=== PATIENT | female | born 1945 | race Hispanic/Latino ===

== ENCOUNTER 2017-07-24 13:47 | Emergency (ER) | payer MEDICARE ==
[2017-07-24 14:09] LABS: BASOPHILS % (AUTO) 1.1 % (0.0-5.0); EOSINOPHILS % (AUTO) 5.1 % (0.0-8.0); HEMATOCRIT 34.6 % (36-48); LYMPHOCYTES % (AUTO) 33.8 % (21.0-51.0); MEAN CORPUSCULAR HEMOGLOBIN 31.1 pg (27.0-33.0); MEAN CORPUSCULAR HGB CONC 35.3 g/dL (32.0-36.0); MEAN CORPUSCULAR VOLUME 88.2 fL (79-99); MONOCYTES % (AUTO) 5.9 % (3.0-13.0); NEUTROPHILS % (AUTO) 54.1 % (40.0-77.0); PLATELET COUNT (AUTO) 205 K/uL (130-400); RED BLOOD CELL COUNT(AUTO) 3.93 MIL/uL (4.00-5.50); RED CELL DISTRIBUTION WIDTH 13.2 % (11.0-15.5)
[2017-07-24 14:20] LABS: CREATININE 1.5 mg/dL (0.5-1.5); POTASSIUM 3.8 mmol/L (3.5-5.1)
[2017-07-24 14:23] LABS: INR 0.94 (0.85-1.15); PARTIAL THROMBOPLASTIN TIME 24.4 SEC (26.3-35.5); PROTHROMBIN TIME 9.9 SEC (9.6-11.6)
[2017-07-24 14:25] LABS: ALBUMIN 3.6 g/dL (3.5-5.0); BILIRUBIN,TOTAL 0.7 mg/dL (0.2-1.0); TOTAL PROTEIN, SERUM 7.8 g/dL (6.0-8.3)
[2017-07-24 14:49] LABS: APPEARANCE,URINE Clear (CLEAR); BILIRUBIN,URINE Negative (NEGATIVE); COLOR,URINE Yellow (YELLOW); GLUCOSE, URINE (UA) Negative (NEGATIVE); KETONES,URINE Negative (NEGATIVE); LEUKOCYTE ESTERASE ,URINE Negative (NEGATIVE); NITRATE,URINE Negative (NEGATIVE); OCCULT BLOOD,URINE Negative (NEGATIVE); PROTEIN,URINE Negative (NEGATIVE); UROBILINOGEN,URINE 0.2 mg/dL (0.2-1.0)
[2017-07-24 15:29] LABS: BACTERIA,URINE Few /HPF (None Seen); RBC,URINE None Seen /HPF (0-1); SQUAMOUS EPITHELIAL CELL,UR 0-2 /HPF (0-2); WBC,URINE 0-1 /HPF (0-1)
[2017-07-24] MEDS ORDERED: METOPROLOL TARTRATE 1 MG/ML 5ML VIAL IV ONE (16:25)
== END 2017-07-24 18:24 | disposition home or self-care (01) ==
LOC: EDH 13:47
DX: R55 Syncope and collapse (principal); E11.65 Type 2 diabetes mellitus with hyperglycemia; I10 Essential (primary) hypertension; E78.5 Hyperlipidemia, unspecified; Z90.49 Acquired absence of other specified parts of digestive tract
CPT/HCPCS: 36415; 70450; 80053; 81003; 84484; 85025; 85610; 85730; 93005; 96374; 99285; J3490

== ENCOUNTER → 2020-02-10 | Outpatient (CLI) | payer MEDICARE | END | disposition home or self-care (01) | LOC: SHCH 10:00 | PROVIDERS: ATTEND Internal Medicine Cardiovascular Disease | DX: I10 Essential (primary) hypertension (principal) | CPT/HCPCS: 93306; 93356 ==

== ENCOUNTER → 2020-02-10 | Outpatient (CLI) | payer OTHER | END | disposition home or self-care (01) | LOC: RAH 14:30 | PROVIDERS: ATTEND Internal Medicine Cardiovascular Disease | DX: Z13.6 Encounter for screening for cardiovascular disorders (principal) | CPT/HCPCS: 75571 ==

== ENCOUNTER 2022-01-23 08:41 | Day surgery (SDC) | payer OTHER, MEDICARE ==
[2022-01-18 16:11] LABS: BASOPHILS % (AUTO) 0.5 % (0.0-5.0); EOSINOPHILS % (AUTO) 2.7 % (0.0-8.0); HEMATOCRIT 36.3 % (36-48); LYMPHOCYTES % (AUTO) 35.1 % (21.0-51.0); MEAN CORPUSCULAR HEMOGLOBIN 29.6 pg (27.0-33.0); MEAN CORPUSCULAR HGB CONC 32.5 g/dL (32.0-36.0); MONOCYTES % (AUTO) 6.2 % (3.0-13.0); NEUTROPHILS % (AUTO) 55.3 % (40.0-77.0); PLATELET COUNT (AUTO) 200 K/uL (130-400); RED BLOOD CELL COUNT(AUTO) 3.99 MIL/uL (4.00-5.50); WHITE BLOOD COUNT (AUTO) 8.2 K/uL (4.8-10.8)
[2022-01-18 16:15] LABS: APPEARANCE,URINE CLEAR (CLEAR); BILIRUBIN,URINE NEGATIVE (NEGATIVE); COLOR,URINE LIGHT-YELLOW (YELLOW); GLUCOSE, URINE (UA) NEGATIVE (NEGATIVE); KETONES,URINE NEGATIVE (NEGATIVE); LEUKOCYTE ESTERASE ,URINE NEGATIVE Leu/uL (NEGATIVE); NITRATE,URINE NEGATIVE (NEGATIVE); OCCULT BLOOD,URINE NEGATIVE (NEGATIVE); PH,URINE 5.5 (5.0-8.0); PROTEIN,URINE NEGATIVE (NEGATIVE); UROBILINOGEN,URINE 0.2 mg/dL (0.2-1.0)
[2022-01-18 16:21] LABS: CREATININE 1.3 mg/dL (0.5-1.5); POTASSIUM 3.9 mmol/L (3.5-5.1)
[2022-01-18 16:22] LABS: BACTERIA,URINE RARE /HPF (None Seen); MUCUS,URINE RARE LPF (None Seen); SQUAMOUS EPITHELIAL CELL,UR FEW /HPF (0-2)
[2022-01-18 16:23] LABS: INR 0.97 (0.85-1.15); PROTHROMBIN TIME 10.6 SEC (9.6-11.6)
[2022-01-18 16:24] LABS: PARTIAL THROMBOPLASTIN TIME 25.9 SEC (26.3-35.5)
[2022-01-18 16:28] LABS: B-TYPE NATRIURETIC PEPTIDE 104 pg/mL (0-100)
[2022-01-19 15:36] VITALS: BP 188/70
[~2022-01-23] VITALS: Ht 162.6 cm; Wt 87.5 kg
[2022-01-23] VITALS (9 sets, daily range): BP systolic 106–164; BP diastolic 48–93
[~2022-01-23 08:41] MED LIST: AEC81 PO; BUME1TAB7 PO; DULA1.5P SQ; LISI1TAB53 PO; METO100T14 PO
[2022-01-23] MEDS ORDERED: 0.9%NACL 1000ML 1,000 ML IV ONE (09:32)
[2022-01-23] MEDS ORDERED: HEPARIN 10,000 UNIT/10ML (1,000 UNIT/ML) VIAL ONE ×2 (11:25→12:19)
[2022-01-23] MEDS ORDERED: IOHEXOL 350 MG/ML 100ML INFUS..BTL IV ONE (11:25)
[2022-01-23] MEDS ORDERED: NITROGLYCERIN 50MG VIAL ONE (11:25)
[2022-01-23] MEDS ORDERED: IOHEXOL-350 50ML VIAL IV ONE (11:25)
[2022-01-23] MEDS ORDERED: LIDOCAINE HCL 1% 20 ML VIAL ONE (11:25)
[2022-01-23] MEDS ORDERED: MIDAZOLAM HCL 1 MG/ML 2ML VIAL ONE ×2 (11:37→11:52)
[2022-01-23] MEDS ORDERED: MEPERIDINE-PF 25 MG/ML SYG ONE (11:37)
[2022-01-23] MEDS ORDERED: MEPERIDINE-PF 50 MG/ML SYG ONE (11:52)
[2022-01-23] MEDS ORDERED: LABETALOL 20MG SYG IV ONE (12:06)
[2022-01-23] MEDS ORDERED: 0.9%NACL 1000ML 1,000 ML IV SCH (12:30)
[2022-01-23] MEDS ORDERED: PRAV20TA4 PO ×2 (16:08→16:09)
== END 2022-01-23 16:30 | disposition home or self-care (01) ==
LOC: DAH 08:41
PROVIDERS: ATTEND Internal Medicine Cardiovascular Disease
DX: I25.119 Atherosclerotic heart disease of native coronary artery with unspecified angina pectoris (principal); I25.82 Chronic total occlusion of coronary artery; I25.2 Old myocardial infarction; I10 Essential (primary) hypertension; E78.5 Hyperlipidemia, unspecified; E11.9 Type 2 diabetes mellitus without complications; E66.9 Obesity, unspecified; M19.90 Unspecified osteoarthritis, unspecified site; Z90.49 Acquired absence of other specified parts of digestive tract; Z82.49 Family history of ischemic heart disease and other diseases of the circulatory system; Z80.7 Family history of other malignant neoplasms of lymphoid, hematopoietic and related tissues; Z79.82 Long term (current) use of aspirin; Z79.84 Long term (current) use of oral hypoglycemic drugs; Z79.899 Other long term (current) drug therapy; Z79.01 Long term (current) use of anticoagulants; Z98.890 Other specified postprocedural states; Z68.33 Body mass index [BMI] 33.0-33.9, adult
CPT/HCPCS: 80048; 83880; 85025; 85610; 85730; 81001; 36415; 71045; 93005; 93458; 82948 ×2; C1894; C1760; J7030; J1644 ×3; J2250 ×2; J2175 ×2; J3490; Q9967 ×2; A4215; A4222; A4221; A4663; A4216; A4606; A4223 ×3; 96360; 96361; 99156; 99157

== ENCOUNTER 2022-02-13 07:30 | Inpatient (IN) | payer OTHER, MEDICARE ==
[2022-02-10 10:43] LABS: BASOPHILS % (AUTO) 0.3 % (0.0-5.0); EOSINOPHILS % (AUTO) 0.7 % (0.0-8.0); HEMATOCRIT 35.9 % (36-48); LYMPHOCYTES % (AUTO) 26.7 % (21.0-51.0); MEAN CORPUSCULAR HEMOGLOBIN 29.7 pg (27.0-33.0); MEAN CORPUSCULAR HGB CONC 33.4 g/dL (32.0-36.0); MEAN CORPUSCULAR VOLUME 88.9 fL (79-99); MONOCYTES % (AUTO) 5.4 % (3.0-13.0); NEUTROPHILS % (AUTO) 66.6 % (40.0-77.0); PLATELET COUNT (AUTO) 226 K/uL (130-400); RED BLOOD CELL COUNT(AUTO) 4.04 MIL/uL (4.00-5.50); RED CELL DISTRIBUTION WIDTH 12.4 % (11.0-15.5); WHITE BLOOD COUNT (AUTO) 7.4 K/uL (4.8-10.8)
[2022-02-10 10:49] LABS: HEMOGLOBIN A1C 6.8 % (4.0-6.0)
[2022-02-10 10:53] LABS: INR 0.97 (0.85-1.15); PROTHROMBIN TIME 10.6 SEC (9.6-11.6)
[2022-02-10 10:54] LABS: PARTIAL THROMBOPLASTIN TIME 24.6 SEC (26.3-35.5)
[2022-02-10 10:58] LABS: ALBUMIN 3.8 g/dL (3.5-5.0); CREATININE 1.1 mg/dL (0.5-1.5); POTASSIUM 3.5 mmol/L (3.5-5.1); TOTAL PROTEIN, SERUM 7.7 g/dL (6.0-8.3)
[2022-02-10 11:05] LABS: B-TYPE NATRIURETIC PEPTIDE 153 pg/mL (0-100)
[2022-02-10 11:21] VITALS: BP 203/100
[2022-02-10 11:40] LABS: ABG BASE EXCESS -0.7 mmol/L (-2.0-3.0); ABG HCO3 23.9 mmol/L (21.0-28.0); ABG OXYGEN SATURATION 97.7 % (95.0-99.0); ABG PCO2 39 mmHg (32-45)
[~2022-02-13] VITALS: Ht 162.6 cm; Wt 84.2 kg
[2022-02-13] VITALS (41 sets, daily range): BP systolic 82–176; BP diastolic 40–88
[~2022-02-13 07:30] MED LIST changes: +ACET-2743 PO; +ASPE90C TP; +PRAV20TA4 PO
[2022-02-13] MEDS ORDERED: 0.9%NACL 1000ML 1,000 ML IV ONE (10:02)
[2022-02-13] MEDS: CEFAZOLIN SODIUM 2 GM VIAL ONE ×2 (10:30→13:00)
[2022-02-13] MEDS ORDERED: EPINEPHRINE PF 1MG (1:1,000) 10 MG in 0.9% NACL 250ML 240 ML IV PRN ×2 (11:00→13:30)
[2022-02-13] MEDS ORDERED: NOREPINEPHRINE BITARTRATE 8 MG in 0.9% NACL 250ML 250 ML IV PRN (11:00)
[2022-02-13] MEDS ORDERED: AMINOCAPROIC ACID 5,000MG VIAL 15,000 MG in 0.9% NACL 500ML IV.SOLN 420 ML IV PRN (11:00)
[2022-02-13] MEDS ORDERED: PAPAVERINE HCL 30 MG/ML 2ML VIAL ONE (11:10)
[2022-02-13] MEDS ORDERED: CEFAZOLIN SODIUM 1 GM VIAL ONE (11:10)
[2022-02-13] MEDS: ASPIRIN 81 MG EC TAB PO SCH (11:11)
[2022-02-13] MEDS ORDERED: KETAMINE HCL 50MG/ML 10ML VIAL IJ ONE (11:36)
[2022-02-13] MEDS ORDERED: ESMOLOL HCL 10 MG/ML 10 ML VIAL ONE (12:26)
[2022-02-13] MEDS ORDERED: EPINEPHRINE PF 1MG (1:1,000) 1 MG/ML AMP ONE (12:26)
[2022-02-13] MEDS ORDERED: ROCURONIUM 10MG/1ML SYR 10 MG/ML ML ONE (12:26)
[2022-02-13] MEDS ORDERED: MIDAZOLAM HCL 1 MG/ML 2ML VIAL ONE (12:26)
[2022-02-13] MEDS ORDERED: PROTAMINE SULFATE 10 MG/ML 25ML VIAL IV ONE (12:26)
[2022-02-13] MEDS ORDERED: NOREPINEPHRINE BITARTRATE 1 MG/1 ML ML IV ONE (12:26)
[2022-02-13] MEDS ORDERED: AMINOCAPROIC ACID 5,000MG VIAL ONE (12:26)
[2022-02-13] MEDS ORDERED: LIDOCAINE PF 100MG/5ML (2%) SYRINGE 5ML ONE (12:26)
[2022-02-13] MEDS ORDERED: FENTANYL CITRATE PF 50 MCG/1 ML 20ML VIAL IJ ONE (12:26)
[2022-02-13] MEDS ORDERED: HEPARIN 10,000 UNIT/10ML (1,000 UNIT/ML) VIAL ONE (12:26)
[2022-02-13] MEDS ORDERED: PROPOFOL 10 MG/ML 20ML VIAL IV ONE (12:26)
[2022-02-13 13:08] LABS: ABG BASE EXCESS -3.2 mmol/L (-2.0-3.0); ABG HCO3 21.1 mmol/L (21.0-28.0); ABG OXYGEN SATURATION 99.7 % (95.0-99.0); ABG PCO2 35 mmHg (32-45)
[2022-02-13] MEDS ORDERED: SODIUM BICARB 8.4% 50ML SYRINGE ONE (13:11)
[2022-02-13] MEDS ORDERED: POTASSIUM PHOS 15 mMOL+NS250ML 250 ML IV PRN (13:30)
[2022-02-13] MEDS ORDERED: ACETAMINOPHEN 650 MG SUPPOSITORY RC PRN (13:30)
[2022-02-13] MEDS ORDERED: NOREPINEPHRIN 4MG/NS 250ML 250 ML IV PRN (13:30)
[2022-02-13] MEDS ORDERED: MORPHINE 2 MG SYG IV PRN (13:30)
[2022-02-13] MEDS ORDERED: MORPHINE 4 MG SYG IV PRN (13:30)
[2022-02-13] MEDS ORDERED: 0.9%NACL 1000ML 1,000 ML IV SCH (13:30)
[2022-02-13] MEDS ORDERED: INSULIN REGULAR, HUMAN 3ML 100 UNIT in 0.9%NACL 100ML 99 ML IV SCH ×2 (13:30)
[2022-02-13] MEDS ORDERED: TRAMADOL HCL 50 MG TABLET PO PRN ×2 (13:30)
[2022-02-13] MEDS ORDERED: DEXTROSE 50%-WATER 50 ML DISP.SYRIN IV PRN (13:30)
[2022-02-13] MEDS ORDERED: 0.9%NACL 10ML VIAL IVP PRN (13:30)
[2022-02-13] MEDS ORDERED: 0.9% NACL 500ML IV.SOLN 500 ML IV SCH (13:30)
[2022-02-13] MEDS ORDERED: ONDANSETRON 4MG INJ IV PRN (13:30)
[2022-02-13] MEDS ORDERED: HYDROCODONE/ACETAMINOPHEN 5/325 MG TAB PO PRN (13:30)
[2022-02-13] MEDS ORDERED: CALCIUM GLUC 1GM 1 GM in 0.9%NACL 50ML 50 ML IV PRN (13:30)
[2022-02-13] MEDS ORDERED: ALBUMIN (HUMAN) 5% 250 ML IV PRN (13:30)
[2022-02-13] MEDS ORDERED: NITROGLYCERIN 50MG/D5W 250ML 250 BOT IV SCH (13:30)
[2022-02-13] MEDS ORDERED: ACETAMINOPHEN 325 MG TAB PO PRN (13:30)
[2022-02-13] MEDS ORDERED: AMINOCAPROIC ACID 5,000MG VIAL 15,000 MG in 0.9% NACL 250ML 250 ML IV SCH (13:30)
[2022-02-13] MEDS ORDERED: GLUCAGON 1MG KIT 1 MG ML IM PRN (13:30)
[2022-02-13] MEDS ORDERED: PROPOFOL 1000 MG/100 ML 100 ML IV PRN (13:30)
[2022-02-13 13:37] LABS: ABG BASE EXCESS -1.5 mmol/L (-2.0-3.0); ABG HCO3 24.8 mmol/L (21.0-28.0); ABG OXYGEN SATURATION 99.7 % (95.0-99.0); ABG PCO2 48 mmHg (32-45)
[2022-02-13 14:42] LABS: ABG BASE EXCESS -5.1 mmol/L (-2.0-3.0); ABG HCO3 18.5 mmol/L (21.0-28.0); ABG OXYGEN SATURATION 99.2 % (95.0-99.0); ABG PCO2 30 mmHg (32-45)
[2022-02-13 15:22] LABS: ABG BASE EXCESS -3.8 mmol/L (-2.0-3.0); ABG HCO3 21.2 mmol/L (21.0-28.0); ABG OXYGEN SATURATION 98.8 % (95.0-99.0); ABG PCO2 38 mmHg (32-45)
[2022-02-13 15:28] LABS: HEMATOCRIT 23.2 % (36-48); MEAN CORPUSCULAR HEMOGLOBIN 30.3 pg (27.0-33.0); MEAN CORPUSCULAR HGB CONC 32.8 g/dL (32.0-36.0); MEAN CORPUSCULAR VOLUME 92.4 fL (79-99); RED BLOOD CELL COUNT(AUTO) 2.51 MIL/uL (4.00-5.50); RED CELL DISTRIBUTION WIDTH 12.5 % (11.0-15.5); WHITE BLOOD COUNT (AUTO) 15.5 K/uL (4.8-10.8)
[2022-02-13 15:38] LABS: INR 1.21 (0.85-1.15)
[2022-02-13 15:39] LABS: PARTIAL THROMBOPLASTIN TIME 22.2 SEC (26.3-35.5)
[2022-02-13 15:40] LABS: CREATININE 0.9 mg/dL (0.5-1.5); MAGNESIUM 1.1 mg/dL (1.80-2.40); PHOSPHORUS 3.3 mg/dL (2.5-4.9); POTASSIUM 3.4 mmol/L (3.5-5.1)
[2022-02-13] MEDS ORDERED: NICARDIPINE 100 MG in 0.9%NACL 100ML IV SCH (16:00)
[2022-02-13] MEDS ORDERED: ASPIRIN 81MG CHEW TAB NG ONE (16:00)
[2022-02-13] MEDS: SODIUM BICARB 50MEQ 50ML VIAL IV PRN ×3 (16:07→17:07)
[2022-02-13] MEDS: POTASSIUM CHLORIDE 20MEQ/100ML 100 ML IV PRN ×4 (16:08→20:43)
[2022-02-13] MEDS: MAGNESIUM 2GM PREMIX 50ML 50 ML IV PRN ×2 (16:28→16:51)
[2022-02-13 16:56] LABS: ABG BASE EXCESS -1.6 mmol/L (-2.0-3.0); ABG HCO3 21.9 mmol/L (21.0-28.0); ABG OXYGEN SATURATION 98.5 % (95.0-99.0); ABG PCO2 33 mmHg (32-45)
[2022-02-13] MEDS: CEFAZOLIN SODIUM 1 GM VIAL IV SCH (18:03)
[2022-02-13 18:16] LABS: ABG BASE EXCESS -0.3 mmol/L (-2.0-3.0); ABG HCO3 25.1 mmol/L (21.0-28.0); ABG OXYGEN SATURATION 98.2 % (95.0-99.0); ABG PCO2 45 mmHg (32-45)
[2022-02-13 19:32] LABS: ABG BASE EXCESS -0.3 mmol/L (-2.0-3.0); ABG HCO3 26.1 mmol/L (21.0-28.0); ABG OXYGEN SATURATION 97.9 % (95.0-99.0); ABG PCO2 51 mmHg (32-45)
[2022-02-13] MEDS: FAMOTIDINE 20MG VIAL IV SCH (20:26)
[2022-02-13 20:28] LABS: ABG BASE EXCESS 0.1 mmol/L (-2.0-3.0); ABG HCO3 26.2 mmol/L (21.0-28.0); ABG OXYGEN SATURATION 97.3 % (95.0-99.0); ABG PCO2 49 mmHg (32-45)
[2022-02-13] MEDS: SIMVASTATIN 20 MG TABLET PO SCH (20:28)
[2022-02-13] MEDS: ACETAMINOPHEN 325 MG TAB PO PRN (21:48)
[2022-02-14] VITALS (69 sets, daily range): BP systolic 46–169; BP diastolic 30–87
[2022-02-14] MEDS: CEFAZOLIN SODIUM 1 GM VIAL IV SCH ×2 (01:33→10:06)
[2022-02-14 03:26] LABS: ABG OXYGEN SATURATION 98.5 % (95.0-99.0); ABG PCO2 44 mmHg (32-45)
[2022-02-14 04:40] LABS: HEMATOCRIT 27.4 % (36-48); MEAN CORPUSCULAR HEMOGLOBIN 29.8 pg (27.0-33.0); MEAN CORPUSCULAR HGB CONC 33.6 g/dL (32.0-36.0); MEAN CORPUSCULAR VOLUME 88.7 fL (79-99); RED BLOOD CELL COUNT(AUTO) 3.09 MIL/uL (4.00-5.50); RED CELL DISTRIBUTION WIDTH 12.9 % (11.0-15.5); WHITE BLOOD COUNT (AUTO) 12.4 K/uL (4.8-10.8)
[2022-02-14 04:56] LABS: INR 0.93 (0.85-1.15); PROTHROMBIN TIME 10.2 SEC (9.6-11.6)
[2022-02-14 04:57] LABS: PARTIAL THROMBOPLASTIN TIME 21.3 SEC (26.3-35.5)
[2022-02-14 05:06] LABS: CREATININE 1.1 mg/dL (0.5-1.5); MAGNESIUM 1.9 mg/dL (1.80-2.40); POTASSIUM 4.1 mmol/L (3.5-5.1)
[2022-02-14] MEDS: ACETAMINOPHEN 325 MG TAB PO PRN ×3 (06:20→19:42)
[2022-02-14] MEDS: MAGNESIUM 2GM PREMIX 50ML 50 ML IV PRN (06:21)
[2022-02-14] MEDS: ASPIRIN 81 MG EC TAB PO SCH (08:36)
[2022-02-14] MEDS: FUROSEMIDE 20MG VIAL IV SCH ×2 (08:37→20:35)
[2022-02-14 13:45] LABS: MAGNESIUM 2.2 mg/dL (1.80-2.40); POTASSIUM 3.7 mmol/L (3.5-5.1)
[2022-02-14] MEDS: POTASSIUM CHLORIDE 20MEQ/100ML 100 ML IV PRN (14:10)
[2022-02-14] MEDS ORDERED: HEPARIN 10,000 UNIT/10ML (1,000 UNIT/ML) VIAL ONE (15:00)
[2022-02-14] MEDS: SIMVASTATIN 20 MG TABLET PO SCH (20:35)
[2022-02-14] MEDS: METOPROLOL TARTRATE 25 MG TAB PO SCH (20:35)
[2022-02-14] MEDS: FAMOTIDINE 20MG VIAL IV SCH (20:35)
[2022-02-15] VITALS (65 sets, daily range): BP systolic 0–145; BP diastolic 0–72
[2022-02-15] MEDS: ACETAMINOPHEN 325 MG TAB PO PRN ×2 (01:09→13:28)
[2022-02-15 04:54] LABS: HEMATOCRIT 23.1 % (36-48); MEAN CORPUSCULAR HEMOGLOBIN 30.1 pg (27.0-33.0); MEAN CORPUSCULAR HGB CONC 32.5 g/dL (32.0-36.0); MEAN CORPUSCULAR VOLUME 92.8 fL (79-99); RED BLOOD CELL COUNT(AUTO) 2.49 MIL/uL (4.00-5.50); RED CELL DISTRIBUTION WIDTH 13.1 % (11.0-15.5); WHITE BLOOD COUNT (AUTO) 13.2 K/uL (4.8-10.8)
[2022-02-15 05:11] LABS: CREATININE 1.3 mg/dL (0.5-1.5); POTASSIUM 3.8 mmol/L (3.5-5.1)
[2022-02-15] MEDS: ASPIRIN 81 MG EC TAB PO SCH (08:14)
[2022-02-15] MEDS: FUROSEMIDE 20 MG TABLET PO SCH ×2 (08:14→16:05)
[2022-02-15] MEDS: METOPROLOL TARTRATE 25 MG TAB PO SCH ×2 (08:14→19:56)
[2022-02-15] MEDS ORDERED: METOPROLOL TARTRATE 25 MG TAB PO SCH (09:00)
[2022-02-15] MEDS: INSULIN HUMULIN R 100 UNIT/ML 3ML SQ SCH ×3 (11:30→20:37)
[2022-02-15] MEDS: FAMOTIDINE 20MG VIAL IV SCH (19:56)
[2022-02-15] MEDS: SIMVASTATIN 20 MG TABLET PO SCH (19:56)
[2022-02-16] VITALS (8 sets, daily range): BP systolic 107–140; BP diastolic 42–70
[2022-02-16 03:23] LABS: HEMATOCRIT 24.5 % (36-48); MEAN CORPUSCULAR HEMOGLOBIN 29.8 pg (27.0-33.0); MEAN CORPUSCULAR HGB CONC 31.8 g/dL (32.0-36.0); MEAN CORPUSCULAR VOLUME 93.5 fL (79-99); RED BLOOD CELL COUNT(AUTO) 2.62 MIL/uL (4.00-5.50); WHITE BLOOD COUNT (AUTO) 11.6 K/uL (4.8-10.8)
[2022-02-16 03:37] LABS: CREATININE 1.5 mg/dL (0.5-1.5); POTASSIUM 3.6 mmol/L (3.5-5.1)
[2022-02-16] MEDS ORDERED: AMIODARONE 150MG VIAL ONE ×2 (03:47→04:03)
[2022-02-16] MEDS ORDERED: AMIODARONE 900MG VIAL 150 MG in DEXTROSE 5%-WATER 100 ML IV SCH (04:00)
[2022-02-16] MEDS ORDERED: AMIODARONE 900MG VIAL 360 MG in DEXTROSE 5%-WATER 200 ML IV SCH (04:10)
[2022-02-16] MEDS: ACETAMINOPHEN 325 MG TAB PO PRN (05:03)
[2022-02-16] MEDS: INSULIN HUMULIN R 100 UNIT/ML 3ML SQ SCH ×4 (06:22→20:13)
[2022-02-16] MEDS: METOPROLOL TARTRATE 25 MG TAB PO SCH ×2 (07:47→20:13)
[2022-02-16] MEDS: FUROSEMIDE 20 MG TABLET PO SCH ×2 (07:47→16:41)
[2022-02-16] MEDS: ASPIRIN 81 MG EC TAB PO SCH (07:47)
[2022-02-16] MEDS: ENOXAPARIN SODIUM 30 MG/0.3 ML SQ SCH (07:48)
[2022-02-16] MEDS: AMIODARONE 900MG VIAL 540 MG in DEXTROSE 5%-WATER 300 ML IV SCH (10:01)
[2022-02-16] MEDS ORDERED: LACTULOSE 20 GM/30 ML UDCUP ONE (18:44)
[2022-02-16] MEDS: SIMVASTATIN 20 MG TABLET PO SCH (20:13)
[2022-02-16] MEDS: FAMOTIDINE 20MG TAB PO SCH (20:33)
[2022-02-17] VITALS (8 sets, daily range): BP systolic 113–155; BP diastolic 60–85
[2022-02-17 04:35] LABS: CREATININE 1.4 mg/dL (0.5-1.5); POTASSIUM 3.9 mmol/L (3.5-5.1)
[2022-02-17] MEDS: AMIODARONE 900MG VIAL 540 MG in DEXTROSE 5%-WATER 300 ML IV SCH (04:37)
[2022-02-17] MEDS: MAGNESIUM 2GM PREMIX 50ML 50 ML IV PRN (04:42)
[2022-02-17 05:33] LABS: HEMATOCRIT 21.8 % (36-48); MEAN CORPUSCULAR HEMOGLOBIN 29.9 pg (27.0-33.0); MEAN CORPUSCULAR VOLUME 90.5 fL (79-99); RED BLOOD CELL COUNT(AUTO) 2.41 MIL/uL (4.00-5.50); RED CELL DISTRIBUTION WIDTH 12.7 % (11.0-15.5); WHITE BLOOD COUNT (AUTO) 7.6 K/uL (4.8-10.8)
[2022-02-17] MEDS: INSULIN HUMULIN R 100 UNIT/ML 3ML SQ SCH ×4 (05:57→19:53)
[2022-02-17 08:08] LABS: % IRON SATURATION 25.4 % (22-44)
[2022-02-17] MEDS: AMIODARONE 200 MG TABLET PO SCH ×2 (08:10→20:41)
[2022-02-17] MEDS: FUROSEMIDE 20 MG TABLET PO SCH ×2 (08:10→17:10)
[2022-02-17] MEDS: ENOXAPARIN SODIUM 30 MG/0.3 ML SQ SCH (08:10)
[2022-02-17] MEDS: ASPIRIN 81 MG EC TAB PO SCH (08:10)
[2022-02-17] MEDS: METOPROLOL TARTRATE 25 MG TAB PO SCH (08:10)
[2022-02-17] MEDS: METOPROLOL TARTRATE 50 MG TAB PO SCH ×2 (09:00→20:41)
[2022-02-17] MEDS ORDERED: DIGOXIN 250 MCG/ML 2ML AMP IV SCH (10:30)
[2022-02-17] MEDS: DIGOXIN 250 MCG/ML 2ML AMP IV SCH (17:58)
[2022-02-17] MEDS: SIMVASTATIN 20 MG TABLET PO SCH (20:41)
[2022-02-17] MEDS: FAMOTIDINE 20MG TAB PO SCH (20:41)
[2022-02-18] MEDS: DIGOXIN 250 MCG/ML 2ML AMP IV SCH (00:43)
[2022-02-18 03:50] LABS: BASOPHILS % (AUTO) 0.1 % (0.0-5.0); EOSINOPHILS % (AUTO) 4.8 % (0.0-8.0); HEMATOCRIT 24.4 % (36-48); LYMPHOCYTES % (AUTO) 15.4 % (21.0-51.0); MEAN CORPUSCULAR HEMOGLOBIN 29.2 pg (27.0-33.0); MEAN CORPUSCULAR HGB CONC 32.8 g/dL (32.0-36.0); MEAN CORPUSCULAR VOLUME 89.1 fL (79-99); MONOCYTES % (AUTO) 9.2 % (3.0-13.0); NEUTROPHILS % (AUTO) 70.1 % (40.0-77.0); PLATELET COUNT (AUTO) 167 K/uL (130-400); RED BLOOD CELL COUNT(AUTO) 2.74 MIL/uL (4.00-5.50); RED CELL DISTRIBUTION WIDTH 13.2 % (11.0-15.5); WHITE BLOOD COUNT (AUTO) 8.5 K/uL (4.8-10.8)
[2022-02-18 03:57] VITALS: BP 151/72
[2022-02-18 03:59] LABS: CREATININE 1.2 mg/dL (0.5-1.5); POTASSIUM 3.8 mmol/L (3.5-5.1)
[2022-02-18] MEDS: INSULIN HUMULIN R 100 UNIT/ML 3ML SQ SCH ×4 (06:33→21:53)
[2022-02-18 08:30] VITALS: BP 144/52
[2022-02-18] MEDS: AMIODARONE 200 MG TABLET PO SCH ×2 (10:27→20:21)
[2022-02-18] MEDS: ASPIRIN 81 MG EC TAB PO SCH (10:28)
[2022-02-18] MEDS: FUROSEMIDE 20 MG TABLET PO SCH ×2 (10:28→17:51)
[2022-02-18] MEDS: ENOXAPARIN SODIUM 30 MG/0.3 ML SQ SCH (10:28)
[2022-02-18] MEDS: METOPROLOL TARTRATE 50 MG TAB PO SCH ×2 (10:47→20:22)
[2022-02-18 12:45] VITALS: BP 143/59
[2022-02-18] MEDS ORDERED: POTASSIUM CHLORIDE 10% ELIXIR 20 MEQ/15 ML UDCUP PO PRN (13:00)
[2022-02-18 16:45] VITALS: BP 148/60
[2022-02-18 19:06] VITALS: BP 166/70
[2022-02-18] MEDS: SIMVASTATIN 20 MG TABLET PO SCH (20:22)
[2022-02-18] MEDS: FAMOTIDINE 20MG TAB PO SCH (20:22)
[2022-02-19] VITALS (7 sets, daily range): BP systolic 132–160; BP diastolic 50–67
[2022-02-19] MEDS: INSULIN HUMULIN R 100 UNIT/ML 3ML SQ SCH ×4 (06:12→21:00)
[2022-02-19] MEDS: METOPROLOL TARTRATE 50 MG TAB PO SCH ×2 (08:28→21:00)
[2022-02-19] MEDS: ASPIRIN 81 MG EC TAB PO SCH (08:28)
[2022-02-19] MEDS: FUROSEMIDE 20 MG TABLET PO SCH ×2 (08:29→17:29)
[2022-02-19] MEDS: AMIODARONE 200 MG TABLET PO SCH ×2 (08:29→21:45)
[2022-02-19] MEDS: ENOXAPARIN SODIUM 30 MG/0.3 ML SQ SCH (08:30)
[2022-02-19] MEDS: SIMVASTATIN 20 MG TABLET PO SCH (21:45)
[2022-02-19] MEDS: FAMOTIDINE 20MG TAB PO SCH (21:45)
[2022-02-20 00:06] VITALS: BP_SYST 133; BP_SYST 140; BP_DIAS 53; BP_DIAS 68
[2022-02-20 03:06] VITALS: BP 133/68
[2022-02-20 04:00] LABS: HEMATOCRIT 23.6 % (36-48); MEAN CORPUSCULAR HEMOGLOBIN 29.8 pg (27.0-33.0); MEAN CORPUSCULAR HGB CONC 32.6 g/dL (32.0-36.0); MEAN CORPUSCULAR VOLUME 91.5 fL (79-99); RED BLOOD CELL COUNT(AUTO) 2.58 MIL/uL (4.00-5.50); RED CELL DISTRIBUTION WIDTH 13.1 % (11.0-15.5); WHITE BLOOD COUNT (AUTO) 8.9 K/uL (4.8-10.8)
[2022-02-20 04:13] LABS: CREATININE 1.2 mg/dL (0.5-1.5); POTASSIUM 3.5 mmol/L (3.5-5.1)
[2022-02-20] MEDS: INSULIN HUMULIN R 100 UNIT/ML 3ML SQ SCH ×3 (06:24→16:17)
[2022-02-20] MEDS: KCL 20 MEQ ERTAB PO PRN ×2 (06:38→11:13)
[2022-02-20 08:00] VITALS: BP 133/62
[2022-02-20] MEDS: METOPROLOL TARTRATE 50 MG TAB PO SCH (08:48)
[2022-02-20] MEDS: AMIODARONE 200 MG TABLET PO SCH (08:49)
[2022-02-20] MEDS: FUROSEMIDE 20 MG TABLET PO SCH (08:49)
[2022-02-20] MEDS: ASPIRIN 81 MG EC TAB PO SCH (08:50)
[2022-02-20] MEDS: ENOXAPARIN SODIUM 30 MG/0.3 ML SQ SCH (08:51)
[2022-02-20 11:00] VITALS: BP 142/51
== END 2022-02-20 16:20 | DRG 235 ==
LOC: DAHIP 10:02 → 2CV 14:18 → 2CH 02-14 12:08 → 2AH 02-15 17:43
PROVIDERS: ADMIT Thoracic Surgery (Cardiothoracic Vascular Surgery); ATTEND Thoracic Surgery (Cardiothoracic Vascular Surgery)
PROC: 02100A9 Bypass Coronary Artery, One Artery from Left Internal Mammary with Autologous Arterial Tissue, Open Approach (ICD-10-PCS; principal; 2022-02-13 12:19)
PROC: 0211093 Bypass Coronary Artery, Two Arteries from Coronary Artery with Autologous Venous Tissue, Open Approach (ICD-10-PCS; 2022-02-13 12:19)
PROC: 3E0F7GC Introduction of Other Therapeutic Substance into Respiratory Tract, Via Natural or Artificial Opening (ICD-10-PCS; 2022-02-13 12:19)
DX: I25.119 Atherosclerotic heart disease of native coronary artery with unspecified angina pectoris (principal); J96.00 Acute respiratory failure, unspecified whether with hypoxia or hypercapnia; I97.190 Other postprocedural cardiac functional disturbances following cardiac surgery; E87.6 Hypokalemia; M19.90 Unspecified osteoarthritis, unspecified site; D50.0 Iron deficiency anemia secondary to blood loss (chronic); Y83.9 Surgical procedure, unspecified as the cause of abnormal reaction of the patient, or of later complication, without mention of misadventure at the time of the procedure
CPT/HCPCS: 36415; 36600; 71045; 71046; 80048; 80053; 80061; 82435; 82803; 82947; 82948; 83036; 83540; 83550; 83605; 83735; 83880; 84100; 84132; 84295; 85018; 85025; 85027; 85610; 85730; 86850; 86900; 86901; 86923; 87426; 87641; 93005; 93880; 94002; 94010; 94150; 94660; 97039; A7048; G0378; J0171; J0282; J0610; J0690; J1160; J1644; J1650; J1815; J1940; J2001; J2250; J2405; J2440; J2704; J2720; J3010; J3475; J3480; J3490; J7030; J7040; J7060; P9016

== ENCOUNTER → 2022-08-18 | Outpatient (CLI) | payer OTHER, MEDICARE | END | disposition home or self-care (01) | LOC: RAH 14:14 | PROVIDERS: ATTEND Family Medicine | DX: Z12.31 Encounter for screening mammogram for malignant neoplasm of breast (principal) | CPT/HCPCS: 77067 ==

== ENCOUNTER → 2024-06-12 | Outpatient (CLI) | payer MEDICARE ==
--- NOTE | 2024-06-12 12:17 | HMCIMG ---
MAMMO SCREENING BILATERAL HISTORY: Screening mammogram. COMPARISON: 08/18/2022 TECHNIQUE: Bilateral screening mammogram with CAD was performed with craniocaudal and mediolateral oblique projections. FINDINGS: There are scattered areas of fibroglandular density. There is no evidence of a dominant mass, or suspicious microcalcification. There is no evidence of nipple retraction or skin thickening. IMPRESSION: 1. Stable mammogram. Patient was entered into a reminder system with a target due date for their next mammogram. BI-RADS: CATEGORY 2: BENIGN FINDINGS Recommend monthly self breast exam as well as annual clinical examination. A negative x-ray should not delay biopsy if a dominant or clinically suspicious mass is present, since 8-10% of cancers are not identified by mammography. Dense breasts particularly, may obscure an underlying neoplasm. Some of these may be detected clinically and therefore, clinical examination is an essential part of breast evaluation.
== END | disposition home or self-care (01) ==
LOC: RAH 11:17
PROVIDERS: ATTEND Family Medicine
DX: Z12.31 Encounter for screening mammogram for malignant neoplasm of breast (principal); R92.323 Mammographic fibroglandular density, bilateral breasts
CPT/HCPCS: 77067